=== PATIENT | male | born 1960 | race Caucasian/White ===

== ENCOUNTER 2021-03-11 22:00 | Inpatient (IN) | payer OTHER ==
[~2021-03-11] VITALS: Ht 167.7 cm; Wt 68.4 kg
--- NOTE | 2021-03-11 22:02 | ED Neurological Problem ---
History of Present Illness Date Seen by Provider: Mar 11, 2021 Time Seen by Provider: 22:02 Initial Comments 60-year-old male brought in by EMS. Patient is incarcerated due to DUI and open container. Patient was found unresponsive however with a pulse. Patient does have loss of bladder. Patient possibly had a seizure. Patient reports a seizure history. Patient's last drink was approximately 48 hours ago. Patient is very shaky and very difficult to understand as you visit with him. EMS reports that he has been slowly becoming more coherent from initial presentation. Patient has a large old bruise across his chest from a fall from a while back. No reports of any recent illness, fevers chills nausea or vomiting. Allergies and Home Medications Allergies Coded Allergies: No Known Drug Allergies (Unverified , 03/12/21) Patient Home Medication List Home Medication List Reviewed: Yes Review of Systems Review of Systems Constitutional: see HPI; No chills, No malaise Eyes: No Symptoms Reported Ears, Nose, Mouth, Throat: no symptoms reported Respiratory: no symptoms reported Cardiovascular: no symptoms reported Genitourinary: see HPI Musculoskeletal: no symptoms reported Skin: no symptoms reported Psychiatric/Neurological: See HPI Physical Exam Vital Signs Vital Signs - First Documented 03/11/21 22:00 Temp 36.5 Pulse 115 Resp 18 B/P (MAP) 113/60 (77) Pulse Ox 100 O2 Delivery Room Air Capillary Refill : Height, Weight, BMI Height: '" Weight: lbs. oz. kg; BMI Method: General Appearance: mild distress, other (Patient is awake and alert however he does have quite a bit of tremors and difficulty speaking without tremor/chills, patient did have loss of bladder function) Respiratory: lungs clear, normal breath sounds Cardiovascular: tachycardia Gastrointestinal: non tender, soft Extremities: normal range of motion Neurologic/Psychiatric: alert, other (Tremor) Crainal Nerves: normal hearing, abnormal speech Skin: other (Large old contusion across his chest wall) Focused Exam Lactate Level 03/11/21 00:24: Lactic Acid Level 2.70*H 03/11/21 22:29: Lactic Acid Level 4.50*H Lactic Acid Level Laboratory Tests Test 03/11/21 00:24 03/11/21 22:29 Lactic Acid Level 2.70 MMOL/L (0.50-2.00) *H 4.50 MMOL/L (0.50-2.00) *H Progress/Results/Core Measures Results/Orders Lab Results Laboratory Tests Test 03/11/21 00:24 03/11/21 01:30 03/11/21 22:14 03/11/21 22:29 Range/Units Lactic Acid Level 2.70 *H 4.50 *H 0.50-2.00 MMOL/L Urine Color YELLOW Urine Clarity SL CLOUDY Urine pH 5.5 5-9 Urine Specific Mercer >=1.030 1.016-1.022 Urine Protein 2+ H NEGATIVE Urine Glucose (UA) NEGATIVE NEGATIVE Urine Ketones 3+ H NEGATIVE Urine Nitrite NEGATIVE NEGATIVE Urine Bilirubin 2+ H NEGATIVE Urine Urobilinogen 0.2 < = 1.0 MG/DL Urine Leukocyte Esterase NEGATIVE NEGATIVE Urine RBC (Auto) 3+ H NEGATIVE Urine RBC NONE /HPF Urine WBC NONE /HPF Urine Squamous Epithelial Cells NONE /HPF Urine Crystals NONE /LPF Urine Bacteria FEW H /HPF Urine Casts PRESENT /LPF Urine Hyaline Casts 0-2 H /LPF Urine Granular Casts RARE /LPF Urine Mucus SMALL H /LPF Urine Culture Indicated NO White Blood Count 11.7 H 4.3-11.0 10^3/uL Red Blood Count 4.30 4.30-5.52 10^6/uL Hemoglobin 14.4 13.3-17.7 g/dL Hematocrit 42 40-54 % Mean Corpuscular Volume 97 80-99 fL Mean Corpuscular Hemoglobin 34 25-34 pg Mean Corpuscular Hemoglobin Concent 34 32-36 g/dL Red Cell Distribution Width 14.6 H 10.0-14.5 % Platelet Count 142 130-400 10^3/uL Mean Platelet Volume 11.6 9.0-12.2 fL Immature Granulocyte % (Auto) 1 % Neutrophils (%) (Auto) 82 H 42-75 % Lymphocytes (%) (Auto) 7 L 12-44 % Monocytes (%) (Auto) 11 0-12 % Eosinophils (%) (Auto) 0 0-10 % Basophils (%) (Auto) 0 0-10 % Neutrophils # (Auto) 9.5 H 1.8-7.8 X 10^3 Lymphocytes # (Auto) 0.8 L 1.0-4.0 X 10^3 Monocytes # (Auto) 1.3 H 0.0-1.0 X 10^3 Eosinophils # (Auto) 0.0 0.0-0.3 10^3/uL Basophils # (Auto) 0.0 0.0-0.1 10^3/uL Immature Granulocyte # (Auto) 0.1 0.0-0.1 10^3/uL Neutrophils % (Manual) 77 % Lymphocytes % (Manual) 4 % Monocytes % (Manual) 16 % Eosinophils % (Manual) 0 % Basophils % (Manual) 0 % Band Neutrophils 3 % Sodium Level 141 135-145 MMOL/L Potassium Level 3.4 L 3.6-5.0 MMOL/L Chloride Level 87 L 98-107 MMOL/L Carbon Dioxide Level 12 L 21-32 MMOL/L Anion Gap 42 H 5-14 MMOL/L Blood Urea Nitrogen 49 H 7-18 MG/DL Creatinine 2.33 H 0.60-1.30 MG/DL Estimat Glomerular Filtration Rate 29 BUN/Creatinine Ratio 21 Glucose Level 96 70-105 MG/DL Calcium Level 10.0 8.5-10.1 MG/DL Corrected Calcium 8.5-10.1 MG/DL Magnesium Level 1.4 L 1.6-2.4 MG/DL Total Bilirubin 1.4 H 0.1-1.0 MG/DL Aspartate Amino Transf (AST/SGOT) 121 H 5-34 U/L Alanine Aminotransferase (ALT/SGPT) 90 H 0-55 U/L Alkaline Phosphatase 96 40-136 U/L Troponin I < 0.30 <0.30 NG/ML Total Protein 8.2 6.4-8.2 GM/DL Albumin 4.6 H 3.2-4.5 GM/DL Serum Alcohol < 10 <10 MG/DL My Orders Orders - CAIN,ALEXI L DO Alcohol (03/11/21 22:02) Cbc With Automated Diff (03/11/21 22:02) Comprehensive Metabolic Panel (03/11/21 22:02) Lactic Acid Analyzer (03/11/21 22:02) Magnesium (03/11/21 22:02) Ua Culture If Indicated (03/11/21 22:02) Troponin I Fs (03/11/21 22:02) Ct Head Wo-R/O Stroke (03/11/21 22:04) Chest 1 View Ap/Pa Only (03/11/21 22:04) Lorazepam Injection (Ativan Injection) (03/11/21 22:15) Ed Iv/Invasive Line Start (03/11/21 23:05) Ns Iv 1000 Ml (Sodium Chloride 0.9%) (03/11/21 23:17) Manual Differential (03/11/21 22:14) Medications Given in ED Current Medications Medications Dose Ordered Sig/Jasmyn Route Start Time Stop Time Status Last Admin Dose Admin Lorazepam 0.5 mg ONCE ONCE IVP 03/11/21 22:15 03/11/21 22:16 DC 03/11/21 22:19 0.5 MG Vital Signs/I&O 03/11/21 03/12/21 22:00 01:44 Temp 36.5 Pulse 115 105 Resp 18 18 B/P (MAP) 113/60 (77) 131/84 Pulse Ox 100 100 O2 Delivery Room Air Room Air Progress Progress Note : Progress Note Patient with symptoms consistent with alcohol withdrawal seizure and delirium. Patient is much more alert than when he initially arrived. He does admit to drinking at least a pint if not more daily. He reports has been drinking since he was 20. He has been drinking daily for last few years. Discussed with Dr. Eid. We will admit patient to [facility] [place] ICU. He was transferred in stable condition Diagnostic Imaging Diagonstic Imaging: CT Plain Films/CT/US/NM/MRI: head Comments CT HEAD WO-R/O STROKE PROCEDURE: CT head without contrast. TECHNIQUE: Multiple contiguous axial images were obtained through the brain without the use of intravenous contrast. Auto Exposure Controls were utilized during the CT exam to meet ALARA standards for radiation dose reduction. DATE: March 11, 2021. COMPARISON: None. INDICATION: 60-year-old male, altered mental status. Seizure. FINDINGS: There is proportional prominence of the ventricles and additional CSF spaces consistent with moderate cerebral volume loss. There is no mass effect or midline shift. There is no acute intracranial hemorrhage. There is no abnormal extra-axial fluid collection. The visualized portions of the paranasal sinuses, mastoid air cells and middle ears are well aerated. IMPRESSION: 1. No identified acute intracranial abnormality. 2. Moderate cerebral volume loss. Reviewed: Reviewed/Discussed Diagonstic Imaging: Xray Plain Films/CT/US/NM/MRI: chest Comments Date of Exam:03/11/21 CHEST 1 VIEW AP/PA ONLY EXAMINATION: Chest radiograph, portable AP view. DATE: 03/11/2021 10:33 PM. INDICATION: 60-year-old male, altered mental status. COMPARISON: None. FINDINGS: Heart size and mediastinal contours are unremarkable. There is no identified pneumothorax. There is no large pleural effusion. There is no identified focal airspace consolidation. There is a deformity of the left sixth rib laterally of unclear exact age. IMPRESSION: 1. No identified acute cardiopulmonary abnormality. 2. Displaced fracture of the left sixth rib laterally of unclear exact age. Recommend correlation. Departure Communication (Admissions) Time/Spoke to Admitting Phy: 23:35 Okay to admit to ICU Impression Primary Impression: Alcohol withdrawal seizure with delirium Disposition: 30 STILL A PATIENT Condition: Stable Admissions Decision to Admit Reason: Admit from ER (General) Decision to Admit/Date: Mar 11, 2021 Time/Decision to Admit Time: 23:37 ALEIX CAIN DO Mar 11, 2021 22:02
[2021-03-11] MEDS ORDERED: LORazepam INJ 2 MG/ML (ATIVAN) VIAL IVP ONE (22:15)
[2021-03-11 22:46] LABS: HEMATOCRIT 42 % (40-54); HEMOGLOBIN 14.4 g/dL (13.3-17.7); MEAN CORPUSCULAR HEMOGLOBIN 34 pg (25-34); MEAN CORPUSCULAR HGB CONC 34 g/dL (32-36); MEAN CORPUSCULAR VOLUME 97 fL (80-99); PLATELET COUNT 142 10^3/uL (130-400); WHITE BLOOD COUNT 11.7 10^3/uL (4.3-11.0)
[2021-03-11 22:47] LABS: BASOPHILS % (AUTO) 0 % (0-10); EOSINOPHILS % (AUTO) 0 % (0-10); LYMPHOCYTES # (AUTO) 0.8 X 10^3 (1.0-4.0); LYMPHOCYTES % (AUTO) 7 % (12-44); MEAN PLATELET VOLUME 11.6 fL (9.0-12.2); MONOCYTES # (AUTO) 1.3 X 10^3 (0.0-1.0); MONOCYTES % (AUTO) 11 % (0-12); NEUTROPHILS # (AUTO) 9.5 X 10^3 (1.8-7.8); NEUTROPHILS % (AUTO) 82 % (42-75)
--- NOTE | 2021-03-11 22:51 | Diagnostic Imaging Report ---
EXAMINATION: Chest radiograph, portable AP view. DATE: 03/11/2021 10:33 PM. INDICATION: 60-year-old male, altered mental status. COMPARISON: None. FINDINGS: Heart size and mediastinal contours are unremarkable. There is no identified pneumothorax. There is no large pleural effusion. There is no identified focal airspace consolidation. There is a deformity of the left sixth rib laterally of unclear exact age. IMPRESSION: 1. No identified acute cardiopulmonary abnormality. 2. Displaced fracture of the left sixth rib laterally of unclear exact age. Recommend correlation. Dictated by: Dictated on workstation # [id number]
--- NOTE | 2021-03-11 22:52 | Diagnostic Imaging Report ---
PROCEDURE: CT head without contrast. TECHNIQUE: Multiple contiguous axial images were obtained through the brain without the use of intravenous contrast. Auto Exposure Controls were utilized during the CT exam to meet ALARA standards for radiation dose reduction. DATE: March 11, 2021. COMPARISON: None. INDICATION: 60-year-old male, altered mental status. Seizure. FINDINGS: There is proportional prominence of the ventricles and additional CSF spaces consistent with moderate cerebral volume loss. There is no mass effect or midline shift. There is no acute intracranial hemorrhage. There is no abnormal extra-axial fluid collection. The visualized portions of the paranasal sinuses, mastoid air cells and middle ears are well aerated. IMPRESSION: 1. No identified acute intracranial abnormality. 2. Moderate cerebral volume loss. Dictated by: Dictated on workstation # [id number]
[2021-03-11 23:10] LABS: ALKALINE PHOSPHATASE 96 U/L (40-136); BILIRUBIN,TOTAL 1.4 MG/DL (0.1-1.0); BUN/CREATININE RATIO 21; CARBON DIOXIDE 12 MMOL/L (21-32); CHLORIDE 87 MMOL/L (98-107); CREATININE SERUM 2.33 MG/DL (0.60-1.30); GFR ESTIMATED 29; GLUCOSE 96 MG/DL (70-105); MAGNESIUM 1.4 MG/DL (1.6-2.4); POTASSIUM 3.4 MMOL/L (3.6-5.0); SODIUM 141 MMOL/L (135-145)
[2021-03-11 23:11] LABS: ALANINE AMINOTRANSFERASE 90 U/L (0-55); ALBUMIN 4.6 GM/DL (3.2-4.5); TOTAL PROTEIN 8.2 GM/DL (6.4-8.2)
[2021-03-11] MEDS ORDERED: NS IV 1000 ML 1,000 ML IV STA (23:17)
[2021-03-11 23:50] LABS: BAND NEUTROPHILS 3 %; BASOPHILS % (MANUAL) 0 %; EOSINOPHILS % (MANUAL) 0 %; LYMPHOCYTES % (MANUAL) 4 %; MONOCYTES % (MANUAL) 16 %; NEUTROPHILS % (MANUAL) 77 %
[2021-03-12 01:50] LABS: CLARITY,URINE SL CLOUDY; COLOR,URINE YELLOW; GLUCOSE, URINE (UA) NEGATIVE (NEGATIVE); KETONES,URINE 3+ (NEGATIVE); LEUKOCYTE ESTERASE ,URINE NEGATIVE (NEGATIVE); NITRITE,URINE NEGATIVE (NEGATIVE); PH,URINE 5.5 (5-9); PROTEIN,URINE 2+ (NEGATIVE)
[2021-03-12 01:59] LABS: BACTERIA,URINE FEW /HPF; BILIRUBIN,URINE 2+ (NEGATIVE)
[2021-03-12 02:00] LABS: GRANULAR CASTS,URINE RARE /LPF; HYALINE CASTS, URINE 0-2 /LPF
[2021-03-12] MEDS ORDERED: NS IV 1000 ML 1,000 ML ONE (03:10)
[2021-03-12] MEDS ORDERED: LORazepam INJ 2 MG/ML (ATIVAN) VIAL ONE (03:31)
[2021-03-12] MEDS: NS IV 1000 ML 1,000 ML IV SCH ×4 (03:36→23:02)
--- NOTE | 2021-03-12 03:42 | Tele-ICU Consult ---
History of Present Illness History of Present Illness Date Seen by Provider: Mar 12, 2021 Time Seen by Provider: 03:14 Date of Admission This virtual visit was conducted using real time audio/video. Thank you for asking us to see this patient for alcohol withdrawal Recent events: admitted through ER. Incarcerated for DUI. PMH: htn SH: smoking history Y FH: Non-contributory ROS: limited by patient's clinical condition, but as in HPI PE: Tremulous. Coherent. VSS. 106/[address] O2 sat 99% on RA HEENT: No obvious masses, adenopathy or JVD. Chest: clear to auscultation. CV: RRR S1 S2 No murmur or added sounds. Abd: Non-tender. Bowel sounds Y. : Unremarkable. Manning N. SITE SUPERVISOR/psychiatric: Grossly intact. No obvious focal findings. Extremities: edema. Capillary refill < 3 seconds. Skin: unremarkable. Results: Elevated WCC 11.7, BUN 49, Creat 2.33 Lactate 2.7, down from 4.5. CXR: normal. Available chart/ vitals / labs / images reviewed. Video assessment done using teleICU camera, rest of exam as per RN. A/P:Alcohol withdrawal: Continue present management with CIWA protocol Monitor for increasing agitation. Critical Care: critically ill patient. Cont monitoring BUN/Creat. Discussed with AMADO Rodriguez. Asked RN to reach out to eICU if any questions or concerns later. Time spent with patient/coordination of care with other health professionals (mins): 24 Allergies and Home Medications Allergies Coded Allergies: No Known Drug Allergies (Unverified , 03/12/21) Past Medical/Social/Family Hx Patient Social History Tobacco Use?: Yes Tobacco type used: Cigarettes Smoking Status: Current Everyday Smoker Smokeless Tobacco Frequency: Never a User Use of E-Cig and/or Vaping dev: No Substance use?: No Alcohol Use?: Yes Alcohol type: Hard Liquor Alcohol Frequency: Daily Pt stated abuse/neglect: No Immunizations Up To Date Influenza Vaccine Up-to-Date: Yes; Up-to-Date First/Initial COVID19 Vaccinat: May Second COVID19 Vaccination Solo: June Tetanus Booster (TDap): Unknown Hepatitis A: No Hepatitis B: No TB Skin Test: None Current Status Advance Directives: No Communicates: Verbally Primary Language: Bulgarian Preferred Spoken Language: Bulgarian Is interpretation needed?: No Implanted or Applied Medical D: None Review of Systems Constitutional: see HPI EENTM: see HPI Respiratory: see HPI Cardiovascular: see HPI Gastrointestinal: see HPI Genitourinary: see HPI Musculoskeletal: see HPI Skin: see HPI Psychiatric/Neurological: See HPI (See free text) Focused Exam Lactate Level 03/11/21 00:24: Lactic Acid Level 2.70*H 03/11/21 22:29: Lactic Acid Level 4.50*H Height, Weight, BMI Height: '" Weight: lbs. oz. kg; 170.78 BMI Method: Exam Exam Patient acknowledged, consented, and participated in this virtual visit which was conducted using real time audio/video Vital Signs Date Time Temp Pulse Resp B/P (MAP) Pulse Ox O2 Delivery O2 Flow Rate FiO2 03/12/21 03:02 37.8 110 109/87 Room Air 03/12/21 01:44 105 18 131/84 100 Room Air 03/11/21 22:00 36.5 115 18 113/60 (77) 100 Room Air I & O 03/12/21 07:00 Intake Total 1000 ml Balance 1000 ml Height & Weight Height: '" Weight: lbs. oz. kg; 170.78 BMI Method: General Appearance: Anxious, Mild Distress Respiratory: Lungs Clear (See free text) Capillary Refill: Less Than 3 Seconds Peripheral Pulses: 1+ Dorsalis Pedis (R), 1+ Left Dors-Pedis (L) (See free text) Gastrointestinal: non tender, soft Results Lab Laboratory Tests 03/11/21 22:14 Assessment/Plan Assessment/Plan See free text Critical Care: Critically Ill Patient WAN DURÁN MD Mar 12, 2021 03:42
[2021-03-12] MEDS ORDERED: ONDANSETRON 4 MG/2 ML (SDV) Z0FRAN IV PRN ×2 (03:45→05:15)
[2021-03-12 05:07] LABS: BASOPHILS % (AUTO) 0 % (0-10); EOSINOPHILS % (AUTO) 0 % (0-10); HEMATOCRIT 35 % (40-54); HEMOGLOBIN 11.8 g/dL (13.3-17.7); LYMPHOCYTES # (AUTO) 1.5 10^3/uL (1.0-4.0); LYMPHOCYTES % (AUTO) 13 % (12-44); MEAN CORPUSCULAR HEMOGLOBIN 33 pg (25-34); MEAN CORPUSCULAR HGB CONC 34 g/dL (32-36); MEAN CORPUSCULAR VOLUME 96 fL (80-99); MEAN PLATELET VOLUME 10.6 fL (9.0-12.2); MONOCYTES # (AUTO) 1.6 10^3/uL (0.0-1.0); MONOCYTES % (AUTO) 14 % (0-12); NEUTROPHILS # (AUTO) 8.1 10^3/uL (1.8-7.8); NEUTROPHILS % (AUTO) 72 % (42-75); PLATELET COUNT 127 10^3/uL (130-400); WHITE BLOOD COUNT 11.2 10^3/uL (4.3-11.0)
[2021-03-12] MEDS ORDERED: ANTACID SUSP 30 ML UDC (MYLANTA) PO PRN (05:15)
[2021-03-12] MEDS ORDERED: ONDANSETRON 4 MG (ZOFRAN) ORAL DISSOLVE TAB SL PRN (05:15)
[2021-03-12] MEDS ORDERED: 1/2 NS IV SOLUTION 1,000 ML IV PRN (05:15)
[2021-03-12] MEDS ORDERED: SENNA W/DOCUSATE (SENOKOT S) TABLET PO PRN (05:15)
[2021-03-12] MEDS ORDERED: LORazepam 1 MG (ATIVAN) TAB PO PRN (05:15)
[2021-03-12] MEDS ORDERED: D5 1/2 NS 1000 ML IV SOLUTION 1,000 ML IV PRN (05:15)
[2021-03-12] MEDS ORDERED: LORazepam INJ 2 MG/ML (ATIVAN) VIAL IM/IV PRN (05:15)
[2021-03-12 05:28] LABS: ALBUMIN 3.7 GM/DL (3.2-4.5); POTASSIUM 2.8 MMOL/L (3.6-5.0)
[2021-03-12 05:30] LABS: CALCIUM 8.4 MG/DL (8.5-10.1)
[2021-03-12 05:31] LABS: TOTAL PROTEIN 6.5 GM/DL (6.4-8.2)
[2021-03-12 05:33] LABS: BILIRUBIN,TOTAL 1.3 MG/DL (0.1-1.0)
[2021-03-12 05:34] LABS: PHOSPHORUS 5.6 MG/DL (2.3-4.7)
[2021-03-12 05:35] LABS: CREATININE SERUM 1.79 MG/DL (0.60-1.30)
[2021-03-12 05:37] LABS: MAGNESIUM 1.5 MG/DL (1.6-2.4)
[2021-03-12] MEDS: MAGNESIUM 1 GM/100 ML IVPB 100 ML IV SCH ×3 (05:45→07:07)
[2021-03-12] MEDS: KCL 20 MEQ TAB (K-DUR) PO SCH (05:45)
[2021-03-12] MEDS: POTASSIUM CL 10MEQ/50ML IVPB 50 ML IV SCH ×6 (05:45→12:49)
[2021-03-12] MEDS ORDERED: POTASSIUM CL 10MEQ/50ML IVPB 250 ML IV ONE (06:06)
[2021-03-12] MEDS ORDERED: MAGNESIUM 1 GM/100 ML IVPB 200 ML IV ONE (06:06)
[2021-03-12] MEDS: NOREPINEPHRINE 8 MG/250 ML 250 ML IV SCH (07:15)
[2021-03-12] MEDS ORDERED: NS IV 1000 ML 1,000 ML IV SCH (07:15)
[2021-03-12] MEDS: THIAMINE INJECTION 100 MG, FOLIC ACID INJECTION 1 MG, MAGNESIUM SULFATE 2 GM, VITAMIN M... IV SCH ×5 (08:37)
--- NOTE | 2021-03-12 11:09 | Tele-ICU Progress Note ---
Subjective Date Seen by a Provider: Mar 12, 2021 Time Seen by a Provider: 11:08 Subjective/Events-last exam Patient admitted with alcohol withdrawal syndrome and hypotension. Currently on a Levophed. Systolic blood pressure ranging around 90-100 mmHg. Resting comfortably. He did not require any Ativan in the last 7- 8 hours. Vital signs otherwise stable. Video visit made and discussed with the RECEIVING MANAGER. Sepsis Event Evaluation Height, Weight, BMI Height: '" Weight: lbs. oz. kg; 24.17 BMI Method: Focused Exam Lactate Level 03/11/21 00:24: Lactic Acid Level 2.70*H 03/11/21 22:29: Lactic Acid Level 4.50*H Exam Exam Patient acknowledged, consented, and participated in this virtual visit which was conducted using real time audio/video Vital Signs Date Time Temp Pulse Resp B/P (MAP) Pulse Ox O2 Delivery O2 Flow Rate FiO2 03/12/21 10:00 83 26 96/68 99 Room Air 03/12/21 09:00 82 24 108/70 93 Room Air 03/12/21 08:00 93 Room Air 03/12/21 08:00 68 23 95/55 95 Room Air 03/12/21 08:00 36.8 03/12/21 07:15 82 108/70 03/12/21 07:00 89 03/12/21 07:00 80 21 88/59 95 Room Air 03/12/21 06:00 90 19 98/58 100 Room Air 03/12/21 05:25 36.9 Room Air 03/12/21 05:00 96 21 107/65 95 Room Air 03/12/21 04:30 103 21 93/64 97 Room Air 03/12/21 04:00 97 17 107/75 94 Room Air 03/12/21 03:45 104 17 89/63 95 Room Air 03/12/21 03:36 100 Room Air 03/12/21 03:30 112 26 88/71 94 Room Air 03/12/21 03:17 105 03/12/21 03:15 106 17 106/91 97 Room Air 03/12/21 03:02 37.8 110 109/87 Room Air 03/12/21 01:44 105 18 131/84 100 Room Air 03/11/21 22:00 36.5 115 18 113/60 (77) 100 Room Air I & O 03/12/21 07:00 Intake Total 1000 ml Output Total 0 ml Balance 1000 ml Height & Weight Height: '" Weight: lbs. oz. kg; 24.17 BMI Method: General Appearance: Anxious, Mild Distress Respiratory: Lungs Clear (See free text) Capillary Refill: Less Than 3 Seconds Peripheral Pulses: 1+ Dorsalis Pedis (R), 1+ Left Dors-Pedis (L) (See free text) Gastrointestinal: non tender, soft Other comments PE PER RN Results Lab Laboratory Tests 03/11/21 22:14 03/12/21 04:25 03/12/21 04:45 Assessment/Plan Assessment/Plan 1. Acute alcohol intoxication with alcohol withdrawal syndrome. 2. Hypotension secondary to dehydration 3. Electrolyte imbalance. Recommendations 1. We will continue IV fluid administration 2. We will give him Levophed to keep map over 65 3. We will give him folic acid, thiamine. 4. CIWA protocol 5. Ulcer prophylaxis and DVT prophylaxis. Critical Care: Critically Ill Patient Time spent with patient (mins): 25 NADJA RAGLAND MD Mar 12, 2021 11:09
[2021-03-12 13:47] LABS: POTASSIUM 2.9 MMOL/L (3.6-5.0)
[2021-03-12 13:54] LABS: MAGNESIUM 2.5 MG/DL (1.6-2.4)
[2021-03-12] MEDS: LORazepam INJ 2 MG/ML (ATIVAN) VIAL IV PRN ×3 (14:30→23:02)
--- NOTE | 2021-03-12 16:30 | History & Physical-Hospitalist ---
History of Present Illness HPI/Chief Complaint Elijah Evans is a 60 year old male with PMH HTN, HLD, anxiety, alcohol dependence who presented with alcohol withdrawal. He has been incarcerated since Monday. He was found unresponsive with loss of urine. He has a history of alcohol withdrawal seizure. He reports that he had gone two years without drinking but then started again. He says his last drink was on Monday. He also normally takes Ativan for anxiety. He smokes cigarettes but not regularly. He does not use any illicit drugs. Source: patient Exam Limitations: no limitations Date Seen 03/12/21 Time Seen by a Provider: 10:15 Attending Physician Stefano Eid MD PCP No,Local Physician Referring Physician Date of Admission Mar 12, 2021 at 12:42 Home Medications & Allergies Home Medications Reviewed patient Home Medication Reconciliation performed by pharmacy medication reconciliations prototype technician and/or nursing. Patients Allergies have been reviewed. Allergies Allergies Coded Allergies No Known Drug Allergies ([id number]/31/21) Past [id number]-Nveqev-Fbrzkr Hx Patient Social History Tobacco Use?: Yes Tobacco type used: Cigarettes Smoking Status: Current Everyday Smoker Smokeless Tobacco Frequency: Never a User Use of E-Cig and/or Vaping dev: No Substance use?: No Alcohol Use?: Yes Alcohol type: Hard Liquor Alcohol Frequency: Daily Pt feels they are or have been: No Immunizations Up To Date First/Initial COVID19 Vaccinat: May Second COVID19 Vaccination Solo: June Tetanus Booster (TDap): Unknown Hepatitis A: No Hepatitis B: No Current Status Advance Directives: No Communicates: Verbally Primary Language: Libyan Preferred Spoken Language: Libyan Is interpretation needed?: No Implanted or Applied Medical D: None Past Medical History High Cholesterol, Hypertension Anxiety Family Medical History No Pertinent Family Hx Review of Systems Constitutional: no symptoms reported EENTM: no symptoms reported Respiratory: no symptoms reported Cardiovascular: no symptoms reported Gastrointestinal: no symptoms reported Genitourinary: incontinence Musculoskeletal: no symptoms reported Skin: no symptoms reported Psychiatric/Neurological: Seizure, Tremors Physical Exam Physical Exam Vital Signs Vital Signs - First Documented 03/11/21 22:00 Temp 36.5 Pulse 115 Resp 18 B/P (MAP) 113/60 (77) Pulse Ox 100 O2 Delivery Room Air Capillary Refill : Less Than 3 Seconds Height, Weight, BMI Height: '" Weight: lbs. oz. kg; 24.17 BMI Method: General Appearance: WD/WN, Mild Distress (shaky) HEENT: PERRL/EOMI, Pharynx Normal Neck: Normal Inspection, Supple Respiratory: Lungs Clear, Normal Breath Sounds, No Respiratory Distress Cardiovascular: No Edema, No Murmur, Irregularly Irregular Gastrointestinal: Normal Bowel Sounds, Non Tender, Soft Extremity: Normal Inspection, Non Tender, No Pedal Edema Neurologic/Psychiatric: Alert, Normal Mood/Affect, Disoriented, Other (tremulous) Skin: Normal Color, Warm/Dry Results Results/Procedures Labs Laboratory Tests 03/11/21 22:14 03/12/21 04:25 03/12/21 04:45 03/12/21 13:25 Patient resulted labs reviewed. Imaging: Reviewed Imaging Report Assessment/Plan Admission Diagnosis Alcohol dependence in [facility] Admission Status: Inpatient Order (span 2 midnights) Reason for Inpatient Admission: Alcohol withdrawal Assessment and Plan Alcohol dependence in [facility] Alcohol withdrawal seizure Hypokalemia Hypomagnesemia Lactic acidosis Alcoholic hepatitis Thrombocytopenia CIWA protcol IV fluids Vitamin supplementaion Gabapentin Monitor and replace electrolytes as needed TeleICU consulted Critical Care Critically Ill Patient Diagnosis/Problems Diagnosis/Problems (1) Alcohol dependence with withdrawal with complication Status: Acute (2) Alcohol withdrawal seizure with delirium Status: Acute (3) Hypokalemia Status: Acute (4) Hypomagnesemia Status: Acute (5) Lactic acidosis Status: Acute (6) LISA (acute kidney injury) Status: Acute (7) Thrombocytopenia Status: Acute (8) Alcoholic hepatitis Status: Acute Qualifiers: Ascites presence: without ascites Qualified Codes: K70.10 - Alcoholic hepatitis without ascites ADELINA CR MD Mar 12, 2021 16:30
[2021-03-12] MEDS ORDERED: OLAN10TA71 PO (16:46)
[2021-03-12] MEDS ORDERED: GABA-486 PO (16:46)
[2021-03-12] MEDS ORDERED: GABAPENTIN 300 MG (NEURONTIN) CAP PO ONE (17:00)
[2021-03-13] MEDS: LORazepam INJ 2 MG/ML (ATIVAN) VIAL IV PRN ×3 (01:58→14:00)
[2021-03-13] MEDS: NOREPINEPHRINE 8 MG/250 ML 250 ML IV SCH (02:21)
[2021-03-13 05:15] LABS: BASOPHILS % (AUTO) 0 % (0-10); HEMOGLOBIN 12.4 g/dL (13.3-17.7)
[2021-03-13 05:17] LABS: EOSINOPHILS % (AUTO) 0 % (0-10); HEMATOCRIT 35 % (40-54); LYMPHOCYTES # (AUTO) 1.6 10^3/uL (1.0-4.0); LYMPHOCYTES % (AUTO) 19 % (12-44); MEAN CORPUSCULAR HEMOGLOBIN 33 pg (25-34); MEAN CORPUSCULAR HGB CONC 35 g/dL (32-36); MEAN CORPUSCULAR VOLUME 95 fL (80-99); MEAN PLATELET VOLUME 9.7 fL (9.0-12.2); MONOCYTES # (AUTO) 1.3 10^3/uL (0.0-1.0); MONOCYTES % (AUTO) 15 % (0-12); NEUTROPHILS # (AUTO) 5.6 10^3/uL (1.8-7.8); NEUTROPHILS % (AUTO) 65 % (42-75); PLATELET COUNT 127 10^3/uL (130-400); WHITE BLOOD COUNT 8.6 10^3/uL (4.3-11.0)
[2021-03-13 05:38] LABS: ALBUMIN 3.5 GM/DL (3.2-4.5); POTASSIUM 2.6 MMOL/L (3.6-5.0)
[2021-03-13 05:39] LABS: CALCIUM 7.8 MG/DL (8.5-10.1)
[2021-03-13 05:41] LABS: TOTAL PROTEIN 6.1 GM/DL (6.4-8.2)
[2021-03-13 05:42] LABS: BILIRUBIN,TOTAL 1.3 MG/DL (0.1-1.0)
[2021-03-13 05:44] LABS: CREATININE SERUM 0.88 MG/DL (0.60-1.30); PHOSPHORUS 1.1 MG/DL (2.3-4.7)
[2021-03-13 05:47] LABS: MAGNESIUM 1.6 MG/DL (1.6-2.4)
[2021-03-13] MEDS: NS IV 1000 ML 1,000 ML IV SCH ×2 (05:49→15:15)
[2021-03-13] MEDS: KCL 20 MEQ TAB (K-DUR) PO SCH (06:23)
[2021-03-13] MEDS: MAGNESIUM 1 GM/100 ML IVPB 100 ML IV SCH ×6 (06:23→14:33)
[2021-03-13] MEDS: POTASSIUM CL 10MEQ/50ML IVPB 50 ML IV SCH ×5 (06:23→18:38)
[2021-03-13] MEDS ORDERED: POTASSIUM CL 10MEQ/50ML IVPB 50 ML IV ONE (07:00)
[2021-03-13] MEDS ORDERED: POTASSIUM CL 10MEQ/50ML IVPB 50 ML IV SCH (08:15)
[2021-03-13] MEDS ORDERED: SODIUM PHOSPHATE INJ 30 MM in NS (IVPB) 250 ML INJ ONE (08:15)
[2021-03-13] MEDS ORDERED: POTASSIUM PHOSPHATE INJ 30 MM in NS (IVPB) 250 ML IV ONE ×2 (08:30→23:30)
[2021-03-13] MEDS: THIAMINE INJECTION 100 MG, FOLIC ACID INJECTION 1 MG, MAGNESIUM SULFATE 2 GM, VITAMIN M... IV SCH ×5 (08:39)
[2021-03-13] MEDS: GABAPENTIN 300 MG (NEURONTIN) CAP PO SCH ×2 (08:46→20:13)
--- NOTE | 2021-03-13 10:08 | Tele-ICU Progress Note ---
Subjective Date Seen by a Provider: Mar 13, 2021 Time Seen by a Provider: 10:07 Subjective/Events-last exam Patient resting comfortably however he developed a severe hypokalemia, hypophosphatemia and hypomagnesemia. Hemodynamically stable. No acute respiratory distress present. Sepsis Event Evaluation Height, Weight, BMI Height: '" Weight: lbs. oz. kg; 24.17 BMI Method: Focused Exam Lactate Level 03/11/21 00:24: Lactic Acid Level 2.70*H 03/11/21 22:29: Lactic Acid Level 4.50*H 03/13/21 04:59: Lactic Acid Level 1.10 Exam Exam Patient acknowledged, consented, and participated in this virtual visit which was conducted using real time audio/video Vital Signs Date Time Temp Pulse Resp B/P (MAP) Pulse Ox O2 Delivery O2 Flow Rate FiO2 03/13/21 09:00 110 29 106/76 97 Room Air 03/13/21 08:00 101 30 104/77 99 Room Air 03/13/21 08:00 37.5 03/13/21 07:00 109 03/13/21 07:00 101 13 120/87 95 Room Air 03/13/21 06:00 102 28 115/88 95 Room Air 03/13/21 05:00 101 27 116/79 95 Room Air 03/13/21 04:00 96 Room Air 03/13/21 04:00 93 28 109/87 98 Room Air 03/13/21 03:00 37.0 Room Air 03/13/21 03:00 98 27 97 Room Air 03/13/21 02:21 102 108/70 03/13/21 02:00 96 20 112/57 97 Room Air 03/13/21 01:00 99 25 101/60 96 Room Air 03/13/21 01:00 94 03/13/21 00:00 105 20 110/68 95 Room Air 03/12/21 23:54 Room Air 03/12/21 23:53 95 Room Air 03/12/21 23:00 105 23 122/93 96 Room Air 03/12/21 22:54 37.0 03/12/21 22:00 110 14 107/95 95 Room Air 03/12/21 21:00 98 18 110/65 99 Room Air 03/12/21 20:00 112 28 133/99 94 Room Air 03/12/21 20:00 96 Room Air 03/12/21 19:58 37.3 03/12/21 19:00 102 03/12/21 19:00 Room Air 03/12/21 19:00 101 23 106/71 98 Room Air 03/12/21 18:00 117 21 132/106 97 Room Air 03/12/21 17:00 79 26 100 Room Air 03/12/21 16:08 95 Room Air 03/12/21 16:00 88 26 93/76 100 Room Air 03/12/21 15:00 69 25 129/88 99 Room Air 03/12/21 14:00 79 20 121/78 96 Room Air 03/12/21 13:00 64 26 107/80 99 Room Air 03/12/21 12:32 63 03/12/21 12:00 86 28 107/74 94 Room Air 03/12/21 11:53 95 Room Air 03/12/21 11:30 36.8 03/12/21 11:00 66 28 132/81 97 Room Air I & O 03/13/21 07:00 Intake Total 3240 ml Output Total 1500 ml Balance 1740 ml Height & Weight Height: '" Weight: lbs. oz. kg; 24.17 BMI Method: General Appearance: WD/WN, Mild Distress (shaky) HEENT: PERRL/EOMI, Pharynx Normal Neck: Normal Inspection, Supple Respiratory: Lungs Clear, Normal Breath Sounds, No Respiratory Distress Cardiovascular: No Edema, No Murmur, Irregularly Irregular Capillary Refill: Less Than 3 Seconds Peripheral Pulses: 1+ Dorsalis Pedis (R), 1+ Left Dors-Pedis (L) (See free text) Gastrointestinal: non tender, soft Extremity: Normal Inspection, Non Tender, No Pedal Edema Neurologic/Psychiatric: Alert, Normal Mood/Affect, Disoriented, Other (tremulous) Skin: Normal Color, Warm/Dry Results Lab Laboratory Tests 03/11/21 22:14 03/12/21 04:25 03/12/21 04:45 03/12/21 13:25 03/13/21 04:59 Assessment/Plan Assessment/Plan 1. Acute alcohol intoxication with alcohol withdrawal syndrome. 2. Hypotension secondary to dehydration 3. Electrolyte imbalance. Recommendations 1. continue IV fluid administration 2. Levophed to keep map over 65 3. continue thiamine and folic acid. 4. CIWA protocol 5. Ulcer prophylaxis and DVT prophylaxis. 6. CORRECT K, PHOS, AND MAG LEVELS Critical Care: Critically Ill Patient Time spent with patient (mins): 20 NADJA RAGLAND MD Mar 13, 2021 10:08
--- NOTE | 2021-03-13 14:56 | Progress Note - Hospitalist ---
Subjective HPI/CC On Admission Date Seen by Provider: Mar 13, 2021 Time Seen by Provider: 11:00 Elijah Evnas is a 60 year old male with PMH HTN, HLD, anxiety, alcohol dependence who presented with alcohol withdrawal. He has been incarcerated since Monday. He was found unresponsive with loss of urine. He has a history of alcohol withd rosalio seizure. He reports that he had gone two years without drinking but then started again. He says his last drink was on Monday. He also normally takes Ativan for anxiety. He smokes cigarettes but not regularly. He does not use any illicit drugs. Subjective/Events-last exam He is feeling about the same. He is not having any nausea or vomiting. He is not having any shakiness until asked to hold up his hands. Focused Exam Lactate Level 03/11/21 00:24: Lactic Acid Level 2.70*H 03/11/21 22:29: Lactic Acid Level 4.50*H 03/13/21 04:59: Lactic Acid Level 1.10 Objective Exam Vital Signs Vital Signs Date Time Temp Pulse Resp B/P (MAP) Pulse Ox O2 Delivery O2 Flow Rate FiO2 03/13/21 14:00 103 32 125/90 98 Room Air 03/13/21 12:00 36.2 Capillary Refill : Less Than 3 Seconds General Appearance: No Apparent Distress, WD/WN Respiratory: Lungs Clear, Normal Breath Sounds, No Respiratory Distress Cardiovascular: Regular Rate, Rhythm, No Edema, No Murmur Gastrointestinal: Normal Bowel Sounds, Non Tender, Soft Extremity: Normal Inspection, Non Tender, No Pedal Edema Neurologic/Psychiatric: Alert, Oriented x3, No Motor/Sensory Deficits, Normal Mood/Affect Skin: Normal Color, Warm/Dry Results/Procedures Lab Laboratory Tests 03/13/21 04:59 Patient resulted labs reviewed. Imaging: Reviewed Imaging Report Assessment/Plan Assessment and Plan Assess & Plan/Chief Complaint Alcohol dependence in withdrwal Alcohol withdrawal seizure Hypokalemia Hypomagnesemia Lactic acidosis Alcoholic hepatitis Thrombocytopenia CIWA protcol IV fluids Vitamin supplementaion Gabapentin Monitor and replace electrolytes as needed TeleICU consulted Move to the medical floor Diagnosis/Problems Diagnosis/Problems (1) Alcohol dependence with withdrawal with complication Status: Acute (2) Alcohol withdrawal seizure with delirium Status: Acute (3) Hypokalemia Status: Acute (4) Hypomagnesemia Status: Acute (5) Lactic acidosis Status: Acute (6) LISA (acute kidney injury) Status: Acute (7) Thrombocytopenia Status: Acute (8) Alcoholic hepatitis Status: Acute Qualifiers: Ascites presence: without ascites Qualified Codes: K70.10 - Alcoholic hepatitis without ascites ADELINA RC MD Mar 13, 2021 14:56
[2021-03-13 15:26] VITALS: BP 117/81
[2021-03-13 19:38] VITALS: BP 135/83
[2021-03-13 22:57] LABS: POTASSIUM 2.9 MMOL/L (3.6-5.0)
[2021-03-13 22:58] LABS: CALCIUM 7.9 MG/DL (8.5-10.1)
[2021-03-13 23:02] LABS: CREATININE SERUM 0.75 MG/DL (0.60-1.30)
[2021-03-14] MEDS: NS IV 1000 ML 1,000 ML IV SCH ×3 (00:11→08:22)
[2021-03-14 00:29] VITALS: BP 139/90
[2021-03-14] MEDS ORDERED: KCL 20 MEQ TAB (K-DUR) PO ONE ×4 (02:00→08:45)
[2021-03-14] MEDS: ACETAMINOPHEN 325 MG TABLET PO PRN ×2 (02:12→15:56)
[2021-03-14 03:03] VITALS: BP 101/62
[2021-03-14 05:20] LABS: BASOPHILS % (AUTO) 0 % (0-10); HEMOGLOBIN 10.8 g/dL (13.3-17.7)
[2021-03-14 05:22] LABS: EOSINOPHILS % (AUTO) 0 % (0-10); HEMATOCRIT 31 % (40-54); LYMPHOCYTES # (AUTO) 1.3 10^3/uL (1.0-4.0); LYMPHOCYTES % (AUTO) 19 % (12-44); MEAN CORPUSCULAR HEMOGLOBIN 34 pg (25-34); MEAN CORPUSCULAR HGB CONC 35 g/dL (32-36); MEAN CORPUSCULAR VOLUME 96 fL (80-99); MEAN PLATELET VOLUME 9.4 fL (9.0-12.2); MONOCYTES # (AUTO) 1.4 10^3/uL (0.0-1.0); MONOCYTES % (AUTO) 20 % (0-12); NEUTROPHILS # (AUTO) 4.3 10^3/uL (1.8-7.8); NEUTROPHILS % (AUTO) 60 % (42-75); PLATELET COUNT 112 10^3/uL (130-400); WHITE BLOOD COUNT 7.1 10^3/uL (4.3-11.0)
[2021-03-14 05:34] LABS: POTASSIUM 3.9 MMOL/L (3.6-5.0)
[2021-03-14 05:35] LABS: CALCIUM 7.6 MG/DL (8.5-10.1)
[2021-03-14] MEDS: POTASSIUM CL 10MEQ/50ML IVPB 50 ML IV SCH (05:36)
[2021-03-14] MEDS: KCL 20 MEQ TAB (K-DUR) PO SCH (05:36)
[2021-03-14 05:37] LABS: TOTAL PROTEIN 5.8 GM/DL (6.4-8.2)
[2021-03-14 05:38] LABS: BILIRUBIN,TOTAL 1.3 MG/DL (0.1-1.0)
[2021-03-14 05:40] LABS: CREATININE SERUM 0.73 MG/DL (0.60-1.30); PHOSPHORUS 2.7 MG/DL (2.3-4.7)
[2021-03-14 05:43] LABS: MAGNESIUM 1.5 MG/DL (1.6-2.4)
[2021-03-14] MEDS: MAGNESIUM 1 GM/100 ML IVPB 100 ML IV SCH ×3 (05:48→06:51)
[2021-03-14 06:16] LABS: BAND NEUTROPHILS 4 %; LYMPHOCYTES % (MANUAL) 13 %; MONOCYTES % (MANUAL) 11 %; NEUTROPHILS % (MANUAL) 72 %
[2021-03-14 07:39] VITALS: BP 126/79
[2021-03-14] MEDS: THIAMINE INJECTION 100 MG, FOLIC ACID INJECTION 1 MG, MAGNESIUM SULFATE 2 GM, VITAMIN M... IV SCH ×5 (08:21)
[2021-03-14] MEDS: GABAPENTIN 300 MG (NEURONTIN) CAP PO SCH ×2 (08:22→21:15)
[2021-03-14] MEDS ORDERED: POT PHOS/NA PHOS (K-PHOS NEUTRAL) PO ONE (08:45)
[2021-03-14 11:26] VITALS: BP 126/85
--- NOTE | 2021-03-14 12:58 | Diagnostic Imaging Report ---
CLINICAL HISTORY: Bilateral ankle pain. COMPARISON: None. TECHNIQUE: 6 views of the bilateral ankles. FINDINGS: There is no acute fracture or dislocation of the bilateral ankles. Alignment is anatomic. The imaged joint spaces are preserved. No focal osseous lesions are seen. There is generalized soft tissue edema in the ankles bilaterally. IMPRESSION: 1. No acute fracture or dislocation in the bilateral ankles. 2. Nonspecific edema in the ankles bilaterally. Dictated by: Dictated on workstation # [id number]
[2021-03-14 16:00] VITALS: BP 141/92
[2021-03-14] MEDS ORDERED: predniSONE 20 MG TAB PO ONE (19:45)
--- NOTE | 2021-03-14 19:45 | Progress Note - Hospitalist ---
Subjective HPI/CC On Admission Date Seen by Provider: Mar 14, 2021 Time Seen by Provider: 11:30 Elijah Evans is a 60 year old male with PMH HTN, HLD, anxiety, alcohol dependence who presented with alcohol withdrawal. He has been incarcerated since Monday. He was found unresponsive with loss of urine. He has a history of alcohol withd rosalio seizure. He reports that he had gone two years without drinking but then started again. He says his last drink was on Monday. He also normally takes Ativan for anxiety. He smokes cigarettes but not regularly. He does not use any illicit drugs. Subjective/Events-last exam He is complaining of ankle pain today. He is also having knee pain. He has no history of gout. He is unsure if he had any trauma. His shakiness is improved. He has not had any nausea or vomiting. Focused Exam Lactate Level 03/11/21 22:29: Lactic Acid Level 4.50*H 03/13/21 04:59: Lactic Acid Level 1.10 Objective Exam Vital Signs Vital Signs Date Time Temp Pulse Resp B/P (MAP) Pulse Ox O2 Delivery O2 Flow Rate FiO2 03/14/21 16:00 36.7 104 20 141/92 (108) 97 Room Air Capillary Refill : Less Than 3 Seconds General Appearance: No Apparent Distress, Chronically ill Respiratory: Lungs Clear, Normal Breath Sounds, No Respiratory Distress Cardiovascular: Regular Rate, Rhythm, No Murmur Gastrointestinal: Normal Bowel Sounds, Non Tender, Soft Extremity: Normal Inspection; No Inflammation; Swelling, Other (ankle tenderness bilaterally, no localized swelling, no redness or warmth, normal rang e of motion) Neurologic/Psychiatric: Alert, Oriented x3 Skin: Normal Color, Warm/Dry Results/Procedures Lab Laboratory Tests 03/13/21 22:30 03/14/21 05:15 Patient resulted labs reviewed. Imaging: Reviewed Imaging Report Assessment/Plan Assessment and Plan Assess & Plan/Chief Complaint Alcohol dependence Hypomagnesemia Thrombocytopenia s/p CIWA protcol Vitamin supplementaion Increase Gabapentin Monitor and replace electrolytes as needed Fever Ankle pain Rapid COVID negative, confirmatory pending Flu negative XR ankles negative Begin prednisone Alcoholic hepatitis, improved Hypophosphatemia, resolved Lactic acidosis, resolved Hypokalemia, resolved Alcohol withdrawal seizure, resolved Alcohol withdrawal, resolved Diagnosis/Problems Diagnosis/Problems (1) Alcohol dependence with withdrawal with complication Status: Acute (2) Alcohol withdrawal seizure with delirium Status: Acute (3) Hypokalemia Status: Acute (4) Hypomagnesemia Status: Acute (5) Lactic acidosis Status: Acute (6) LISA (acute kidney injury) Status: Acute (7) Thrombocytopenia Status: Acute (8) Alcoholic hepatitis Status: Acute Qualifiers: Ascites presence: without ascites Qualified Codes: K70.10 - Alcoholic hepatitis without ascites (9) Fever Status: Acute ADELINA CR MD Mar 14, 2021 19:45
[2021-03-14 20:00] VITALS: BP 108/70
[2021-03-15] VITALS: BP 136/84
[2021-03-15] MEDS: ACETAMINOPHEN 325 MG TABLET PO PRN (03:51)
[2021-03-15 03:56] VITALS: BP 132/80
[2021-03-15 06:51] LABS: BASOPHILS % (AUTO) 0 % (0-10); EOSINOPHILS % (AUTO) 0 % (0-10); HEMATOCRIT 32 % (40-54); HEMOGLOBIN 10.9 g/dL (13.3-17.7); LYMPHOCYTES # (AUTO) 0.4 10^3/uL (1.0-4.0); LYMPHOCYTES % (AUTO) 6 % (12-44); MEAN CORPUSCULAR HEMOGLOBIN 33 pg (25-34); MEAN CORPUSCULAR HGB CONC 35 g/dL (32-36); MEAN CORPUSCULAR VOLUME 96 fL (80-99); MEAN PLATELET VOLUME 10.2 fL (9.0-12.2); MONOCYTES # (AUTO) 1.1 10^3/uL (0.0-1.0); MONOCYTES % (AUTO) 17 % (0-12); NEUTROPHILS # (AUTO) 5.1 10^3/uL (1.8-7.8); NEUTROPHILS % (AUTO) 77 % (42-75); PLATELET COUNT 124 10^3/uL (130-400); WHITE BLOOD COUNT 6.7 10^3/uL (4.3-11.0)
[2021-03-15] MEDS ORDERED: predniSONE 20 MG TAB PO SCH (07:00)
[2021-03-15 07:20] LABS: MAGNESIUM 1.7 MG/DL (1.6-2.4); PHOSPHORUS 2.1 MG/DL (2.3-4.7)
[2021-03-15 07:23] LABS: ALBUMIN 2.9 GM/DL (3.2-4.5); BILIRUBIN,TOTAL 0.8 MG/DL (0.1-1.0); CALCIUM 8.6 MG/DL (8.5-10.1); CREATININE SERUM 0.78 MG/DL (0.60-1.30); POTASSIUM 4.1 MMOL/L (3.6-5.0)
[2021-03-15] MEDS: MAGNESIUM 1 GM/100 ML IVPB 100 ML IV SCH (07:25)
[2021-03-15] MEDS: KCL 20 MEQ TAB (K-DUR) PO SCH (07:25)
[2021-03-15] MEDS: POTASSIUM CL 10MEQ/50ML IVPB 50 ML IV SCH (07:25)
[2021-03-15 08:00] VITALS: BP 124/73
[2021-03-15] MEDS ORDERED: ASPI-1238 PO (08:31)
[2021-03-15] MEDS ORDERED: LORA-405 PO (08:31)
[2021-03-15] MEDS ORDERED: AMLO-250 PO (08:31)
[2021-03-15] MEDS ORDERED: ATOR20TA66 PO (08:31)
[2021-03-15] MEDS ORDERED: FLUT15.845 NS (08:33)
[2021-03-15] MEDS ORDERED: MULT-1061 PO (08:33)
[2021-03-15] MEDS: GABAPENTIN 300 MG (NEURONTIN) CAP PO SCH ×2 (09:37→15:08)
[2021-03-15] MEDS ORDERED: PRD20T PO (11:29)
[2021-03-15] MEDS ORDERED: GABA-490 PO (11:29)
== END 2021-03-15 16:00 | disposition home or self-care (01) | DRG 897 ==
LOC: EDBD 22:01 → ER FS 22:01 → ICU 03-12 02:58 → OBSVTOIN 03-12 12:42 → 4TH 03-13 14:47
PROVIDERS: ADMIT Internal Medicine; ATTEND Internal Medicine
DX: F10.231 Alcohol dependence with withdrawal delirium (principal); E87.2 Acidosis; N17.9 Acute kidney failure, unspecified; R56.9 Unspecified convulsions; F17.210 Nicotine dependence, cigarettes, uncomplicated; E86.0 Dehydration; I95.9 Hypotension, unspecified; Z20.822 Contact with and (suspected) exposure to COVID-19; I10 Essential (primary) hypertension; E78.5 Hyperlipidemia, unspecified; F41.9 Anxiety disorder, unspecified; F10.221 Alcohol dependence with intoxication delirium; E87.6 Hypokalemia; E83.42 Hypomagnesemia; K70.10 Alcoholic hepatitis without ascites; D69.6 Thrombocytopenia, unspecified; R50.9 Fever, unspecified; M25.579 Pain in unspecified ankle and joints of unspecified foot
CPT/HCPCS: 36415; 70450; 71045; 80048; 80053; 80320; 81000; 83605; 83735; 84100; 84132; 84484; 85007; 85025; 85027; 87081; 87635; 87636; 87804; G0378